=== PATIENT | male | born 1955 | race Caucasian/White ===

== ENCOUNTER 2018-07-04 16:43 | Emergency (ER) | payer BC ==
[~2018-07-04] VITALS: Ht 188 cm; Wt 88.6 kg
[2018-07-04] MEDS ORDERED: HYDROCHLOROTHIA1 T15 PO (16:50)
[2018-07-04] MEDS ORDERED: NAPROXEN500 MG PO (16:50)
[2018-07-04] MEDS ORDERED: ATORVASTATIN CA10 MG PO (16:50)
[2018-07-04 17:50] VITALS: BP 148/86
== END 2018-07-04 17:35 | disposition home or self-care (01) ==
LOC: ED 16:43
DX: S61.216A Laceration without foreign body of right little finger without damage to nail, initial encounter (principal); W23.1XXA Caught, crushed, jammed, or pinched between stationary objects, initial encounter; Y92.009 Unspecified place in unspecified non-institutional (private) residence as the place of occurrence of the external cause; Z79.899 Other long term (current) drug therapy

== ENCOUNTER 2018-07-14 18:30 | Emergency (ER) | payer BC ==
[~2018-07-14 18:30] MED LIST: ATORVASTATIN CA10 MG PO; HYDROCHLOROTHIA1 T15 PO; NAPROXEN500 MG PO
== END 2018-07-14 18:39 | disposition home or self-care (01) ==
LOC: ED 18:30
DX: Z48.02 Encounter for removal of sutures (principal)

== ENCOUNTER 2019-04-12 18:55 | Emergency (ER) | payer BC ==
[2019-04-12 20:37] LABS: EOS % 0.3 % (0.0-4.0); HEMATOCRIT 41.5 % (42.0-52.0); HEMOGLOBIN 13.4 g/dL (13.5-18.0); LYMPH# 1.3 (1.50-4.00); MEAN CELL VOLUME 94 fl (78-100); MEAN CORPUSCULAR HEMOGLOBIN 30 pg (27-31); MEAN CORPUSCULAR HGB CONC 32 g/dL (33-37); MEAN PLATELET VOLUME 9.2 fl (7.4-10.4); MONO # 0.6 (0.20-0.80); NEU # 6.6 (1.40-6.50); PLATELET COUNT 314 K/mm3 (130-400); RED BLOOD COUNT 4.42 M/mm3 (4.20-5.60); RED CELL DISTRIBUTION WIDTH 13.6 % (11.5-14.5); WHITE BLOOD COUNT 8.6 K/mm3 (4.8-10.8)
[2019-04-12 20:46] LABS: ALBUMIN 4.2 g/dL (3.4-4.8)
[2019-04-12 20:47] LABS: POTASSIUM 4.7 mmol/L (3.5-5.1); SODIUM 138 mmol/L (136-145)
[2019-04-12 20:48] LABS: CALCIUM 9.9 mg/dL (8.3-10.5)
[2019-04-12 20:49] LABS: GLUCOSE 95 mg/dL (75-110); TOTAL PROTEIN 7.5 g/dL (6.2-8.1)
[2019-04-12 20:50] LABS: CARBON DIOXIDE 21 mmol/L (23-31)
[2019-04-12 20:51] LABS: TOTAL BILIRUBIN 0.4 mg/dL (0.2-1.2)
[2019-04-12 20:54] LABS: AST-SGOT 26 U/L (5-34)
[2019-04-12 20:55] LABS: ALT/SGPT 23 U/L (0-55)
[2019-04-12 20:59] LABS: URINE APPEARANCE CLOUDY; URINE BILIRUBIN NEGATIVE (NEGATIVE); URINE COLOR YELLOW; URINE GLUCOSE NEGATIVE (NEGATIVE); URINE KETONE NEGATIVE (NEGATIVE); URINE NITRATE NEGATIVE (NEGATIVE); URINE PROTEIN(semi-quant) TRACE mg/dL (NEGATIVE); URINE UROBILINOGEN NORMAL (NORMAL)
[2019-04-12 21:00] LABS: URINE BLOOD TRACE (NEGATIVE); URINE LEUKOCYTE ESTERASE NEGATIVE (NEGATIVE)
[2019-04-12 21:01] LABS: URINE MUCUS PRESENT (NOT PRESENT)
[2019-04-12 21:02] LABS: TROPONIN-I < 0.03 ng/mL (<0.030)
[2019-04-12 23:25] LABS: D-DIMER 1.64 mg/L FEU (0.15-0.50)
[2019-04-13 00:12] VITALS: BP 135/74
== END 2019-04-13 00:12 | disposition short-term general hospital (02) ==
LOC: ED 18:55
PROVIDERS: Nurse Practitioner Family
DX: S00.83XA Contusion of other part of head, initial encounter (principal); R55 Syncope and collapse; S71.01 Laceration without foreign body of hip; N17.9 Acute kidney failure, unspecified; I10 Essential (primary) hypertension; E78.5 Hyperlipidemia, unspecified; W22.8XXA Striking against or struck by other objects, initial encounter; Y92.480 Sidewalk as the place of occurrence of the external cause
CPT/HCPCS: J7030

== ENCOUNTER 2019-04-18 17:48 | Emergency (ER) | payer BC ==
[2019-04-18 18:17] VITALS: BP 135/74
== END 2019-04-18 18:00 | disposition home or self-care (01) ==
LOC: ED 17:48
DX: S01.511D Laceration without foreign body of lip, subsequent encounter (principal)

== ENCOUNTER 2020-05-18 20:12 | Emergency (ER) | payer BC ==
[~2020-05-18] VITALS: Ht 188 cm; Wt 88.6 kg
[2020-05-18] MEDS ORDERED: NORVASC 10MG10 MG PO (20:23)
[2020-05-18] MEDS ORDERED: HYDROCHLOROTH12.5 M1 PO (20:24)
[2020-05-18 21:50] VITALS: BP 149/83
== END 2020-05-18 21:50 | disposition home or self-care (01) ==
LOC: ED 20:12
DX: S63.275A Dislocation of unspecified interphalangeal joint of left ring finger, initial encounter (principal); I10 Essential (primary) hypertension; W19.XXXA Unspecified fall, initial encounter; Y92.009 Unspecified place in unspecified non-institutional (private) residence as the place of occurrence of the external cause

== ENCOUNTER → 2021-05-13 | Outpatient (CLI) | payer BC ==
[~2021-05-13] MED LIST changes: +HYDROCHLOROTH12.5 M1 PO; +NORVASC 10MG10 MG PO
== END ==
LOC: RAD 13:10
DX: Z13.6 Encounter for screening for cardiovascular disorders (principal); M79.89 Other specified soft tissue disorders

== ENCOUNTER 2024-03-14 12:45 | Outpatient (RCR) | payer BC | END 2024-04-10 | LOC: PT | DX: M25.551 Pain in right hip (principal); M25.552 Pain in left hip; Z96.642 Presence of left artificial hip joint ==